=== PATIENT | female | born 1960 | race Caucasian/White ===

== ENCOUNTER 2024-04-01 07:19 | Emergency (ER) | payer MEDICAID, OTHER ==
[~2024-04-01] VITALS: Ht 162.6 cm; Wt 70.0 kg
[2024-04-01 07:22] VITALS: BP 156/90; PULSE 92; RESP 18; TEMP 98.2; O2SAT 100
== END 2024-04-01 09:35 | disposition home or self-care (01) ==
LOC: ER 07:19
DX: S83.92XA Sprain of unspecified site of left knee, initial encounter (principal); W01.0XXA Fall on same level from slipping, tripping and stumbling without subsequent striking against object, initial encounter; Y93.89 Activity, other specified; Y92.89 Other specified places as the place of occurrence of the external cause; Y99.8 Other external cause status
CPT/HCPCS: 29505; 73562; 99283